=== PATIENT | female | born 1980 | race African-American/Black ===

== ENCOUNTER 2018-11-16 16:54 | Emergency (ER) | payer OTHER | END 2018-11-16 17:12 | disposition home or self-care (01) | LOC: E/R 17:12 | DX: S80.862A Insect bite (nonvenomous), left lower leg, initial encounter (principal); S80.861A Insect bite (nonvenomous), right lower leg, initial encounter; W57.XXXA Bitten or stung by nonvenomous insect and other nonvenomous arthropods, initial encounter; Y92.9 Unspecified place or not applicable | CPT/HCPCS: 99283; Z7502 ==

== ENCOUNTER 2018-12-11 11:32 | Emergency (ER) | payer OTHER | END 2018-12-11 13:48 | disposition home or self-care (01) | LOC: FTE 11:32 | DX: S50.361A Insect bite (nonvenomous) of right elbow, initial encounter (principal); W57.XXXA Bitten or stung by nonvenomous insect and other nonvenomous arthropods, initial encounter; Y92.9 Unspecified place or not applicable | CPT/HCPCS: 99283; Z7502 ==